=== PATIENT | female | born 1960 | race American Indian/Alaskan Native ===

== ENCOUNTER 2017-01-11 15:38 | Outpatient (CLI) | payer OTHER ==
--- NOTE | 2017-01-12 09:52 | XRay Report ---
BILATERAL HIP THREE VIEWS EACH: 01/11/17 15:38:00 CLINICAL: Bilateral hip pain. FINDINGS: Right: No fracture or dislocation. Osteoarthritis with the superolateral osteophyte and moderate narrowing of the joint space.. Normal soft tissues. Left: No fracture or dislocation. Osteoarthritis with acetabular eburnation and minimal joint space narrowing.Normal soft tissues. The pelvic bones are intact except for a screening at the iliac crests.Normal SI joints. Lower lumbar degenerative disc disease with osteophytes. IMPRESSION: Osteoarthritis, greater in the right hip than the left. Nonspecific pelvic enthesopathy.
== END 2017-01-11 15:39 | disposition home or self-care (01) ==
LOC: XRAY 15:38
PROVIDERS: ATTEND Family Medicine
DX: M16.0 Bilateral primary osteoarthritis of hip (principal); M51.36 Other intervertebral disc degeneration, lumbar region; M77.8 Other enthesopathies, not elsewhere classified
CPT/HCPCS: 73521

== ENCOUNTER 2017-05-06 14:54 | Outpatient (CLI) | payer OTHER ==
--- NOTE | 2017-05-06 16:54 | XRay Report ---
LUMBAR SPINE RADIOGRAPHS INDICATION: Low back pain. COMPARISON: None similar. FINDINGS: AP, oblique and lateral lumbar spine radiographs demonstrate slight levocurvature apex about L2-L3. No evidence of pars defect. Degenerative spurring throughout imaged lumbar and lower thoracic spine. Normal alignment. Slight disc degeneration possible at some lumbar levels. Mild aortic atherosclerotic calcifications. Intact SI joints. Nonobstructive bowel gas pattern. CONCLUSION: Spinal spondylosis without acute radiographic abnormality, as described. Thank you for the opportunity to participate in this patient's care.
== END 2017-05-06 14:55 | disposition home or self-care (01) ==
LOC: XRAY 14:54
PROVIDERS: ATTEND Orthopaedic Surgery
DX: M47.896 Other spondylosis, lumbar region (principal); M43.8X6 Other specified deforming dorsopathies, lumbar region; I70.0 Atherosclerosis of aorta
CPT/HCPCS: 72110